=== PATIENT | female | born 1975 | race Caucasian/White ===

== ENCOUNTER 2018-07-15 13:40 | Inpatient (IN) | payer MEDICAID, OTHER ==
[~2018-07-15] VITALS: Ht 162.6 cm; Wt 70.0 kg
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
[2018-07-15] MEDS ORDERED: LORazepam 1MG TABLET PO ONE (14:30)
[2018-07-15 14:49] LABS: BASOPHILS # (AUTO) 0.05 x10^3/uL (0-0.1); BASOPHILS % (AUTO) 1 % (0-1); EOSINOPHILS # (AUTO) 0.03 x10^3/uL (0-0.4); EOSINOPHILS % (AUTO) 0 % (1-7); LYMPHOCYTES # (AUTO) 1.77 x10^3/uL (1-3.4); LYMPHOCYTES % (AUTO) 24 % (22-44); MD NO; MEAN CORPUSCULAR HEMOGLOBIN 30.3 pg (27.0-34.8); MEAN CORPUSCULAR HGB CONC 33.5 g/dL (32.4-35.8); MEAN CORPUSCULAR VOLUME 90.6 fL (80-100); MEAN PLATELET VOLUME 10.5 fL (7.4-10.4); MONOCYTES # (AUTO) 0.48 x10^3/uL (0.2-0.8); MONOCYTES % (AUTO) 7 % (2-9); NEUTROPHILS # (AUTO) 5.05 x10^3/uL (1.8-6.8); NEUTROPHILS % (AUTO) 69 % (42-75); PLATELET COUNT 234 x10^3/uL (130-400); RED BLOOD COUNT 4.65 x10^6/uL (3.82-5.3); RED CELL DISTRIBUTION WIDTH 16.1 % (9.6-15.2)
[2018-07-15 14:51] LABS: CHLORIDE 106 mmol/L (98-107)
[2018-07-15] MEDS ORDERED: LORazepam 1MG TABLET ONE (14:59)
[2018-07-15 15:00] LABS: ALANINE AMINOTRANSFERASE 32 U/L (12-78); ALBUMIN 3.4 g/dL (3.4-5.0); ALKALINE PHOSPHATASE 76 U/L (45-117); ANION GAP 10 mmol/L (5-15); BILIRUBIN,TOTAL 0.6 mg/dL (0.2-1.0); CALCIUM 8.6 mg/dL (8.5-10.1); CREATININE 0.85 mg/dL (0.55-1.02); TOTAL PROTEIN 8.3 g/dL (6.4-8.2)
[2018-07-15 15:01] LABS: SALICYLATE LEVEL < 1.7 mg/dL (2.8-20.0)
[2018-07-15 15:03] LABS: ACETAMINOPHEN < 2 mcg/mL (10-30)
--- NOTE | 2018-07-15 15:45 | NUR ---
ROOM SECURED WITH PSYCH PRECAUTIONS 1:1 SITTER AT BEDSIDE PATIENT RESTING COMFORTABLY ON GURNERY WITH SIDE RAILS UP PROVIDED WITH ADDITIONAL BLANKET/WATER
[2018-07-15 16:14] LABS: MICROSCOPIC INDICATED
[2018-07-15 16:23] LABS: CULTURE INDICATED? NO
[2018-07-15 16:26] LABS: AMPHETAMINE SCREEN, URINE Positive (Negative); BARBITURATE SCREEN, URINE Negative (Negative); BENZODIAZEPINE SCREEN, URINE Negative (Negative); CANNABINOID SCREEN, URINE Negative (Negative); COCAINE SCREEN, URINE Negative (Negative); METHADONE SCREEN, URINE Negative (Negative); OPIATE SCREEN, URINE Negative (Negative)
--- NOTE | 2018-07-15 16:29 | NUR ---
TASK RN: FIRST CONTACT WITH PT. BANKING MANAGEMENT CONSULTING MANAGER at bedside preforming breathalyzer with pt. Pt deneis n/v/d, sob, cp, tremors, auditory hallucinations, visual halucinations, or tactile disturbances. Pt states, "I was nauseas earlier but the pill he gave me helped." NADN. Pt resting on gurney with blanket provided for comfort measures. SI precautions in place. Sitter near doorway in direct line of sight for observation. No needs expressed at this time. Pt has unlabored respiratiosn with even chest rise and fall. Pt is AOX4. Pt's skin is pink, warm, and dry.
--- NOTE | 2018-07-15 17:23 | NUR ---
ROOM SECURED WITH PSYCH PRECAUTIONS 1:1 SITTER AT BEDSIDE PATIENT RESTING COMFORTABLY ON GURNERY WITH SIDE RAILS UP HOSPITALIST AT BEDSIDE
[2018-07-15] MEDS ORDERED: LORazepam 2 MG/ML, 1ML IM PRN ×2 (17:30)
[2018-07-15] MEDS ORDERED: THIAMINE 100 MG/ML, 2ML IM ONE (17:30)
[2018-07-15] MEDS ORDERED: ONDANSETRON ODT 4 MG PO PRN (17:30)
[2018-07-15 18:15] LABS: AMPHETAMINE SCREEN, URINE Positive (Negative); BARBITURATE SCREEN, URINE Negative (Negative); BENZODIAZEPINE SCREEN, URINE Negative (Negative); CANNABINOID SCREEN, URINE Negative (Negative); COCAINE SCREEN, URINE Negative (Negative); METHADONE SCREEN, URINE Negative (Negative); OPIATE SCREEN, URINE Negative (Negative)
[2018-07-15] MEDS ORDERED: THIAMINE 100 MG/ML, 2ML ONE (19:11)
[2018-07-15 19:26] VITALS: BP 125/83
[2018-07-15] MEDS: CHLORDIAZEPOXIDE 10 MG CAPSULE PO SCH (20:16)
[2018-07-16] MEDS: THIAMINE 100MG TABLET PO SCH (07:20)
[2018-07-16] MEDS: FOLIC ACID 1 MG TABLET PO SCH (07:20)
[2018-07-16] MEDS: CHLORDIAZEPOXIDE 10 MG CAPSULE PO SCH ×2 (07:20→11:32)
[2018-07-16] MEDS: MULTIVITAMIN 1 TABLET PO SCH (07:21)
[2018-07-16 07:47] VITALS: BP 120/85
[2018-07-16 20:01] VITALS: BP 107/66
[2018-07-16 20:47] VITALS: BP 112/76
[2018-07-16] MEDS: LORazepam 1MG TABLET PO PRN (21:04)
[2018-07-17] MEDS: LORazepam 1MG TABLET PO PRN ×3 (02:35→20:42)
[2018-07-17 07:09] VITALS: BP 115/76
[2018-07-17] MEDS: MULTIVITAMIN 1 TABLET PO SCH (07:46)
[2018-07-17] MEDS: THIAMINE 100MG TABLET PO SCH (07:46)
[2018-07-17] MEDS: FOLIC ACID 1 MG TABLET PO SCH (07:46)
[2018-07-17 20:32] VITALS: BP 118/82
[2018-07-18 07:17] VITALS: BP 122/82
[2018-07-18] MEDS: THIAMINE 100MG TABLET PO SCH (07:32)
[2018-07-18] MEDS: FOLIC ACID 1 MG TABLET PO SCH (07:32)
[2018-07-18] MEDS: LORazepam 1MG TABLET PO PRN ×2 (07:32→19:21)
[2018-07-18] MEDS: MULTIVITAMIN 1 TABLET PO SCH (07:32)
[2018-07-18 19:28] VITALS: BP 124/89
[2018-07-19 07:15] VITALS: BP 128/83
[2018-07-19] MEDS: THIAMINE 100MG TABLET PO SCH (08:30)
[2018-07-19] MEDS: FOLIC ACID 1 MG TABLET PO SCH (08:30)
[2018-07-19] MEDS: MULTIVITAMIN 1 TABLET PO SCH (08:31)
[2018-07-19] MEDS ORDERED: THIA100T67 PO (10:54)
[2018-07-19] MEDS ORDERED: FOLI-17 PO (10:54)
[2018-07-19] MEDS ORDERED: LORA-445 PO (10:54)
[2018-07-19 20:00] VITALS: BP 110/77
[2018-07-20 07:29] VITALS: BP 110/73
[2018-07-20] MEDS: FOLIC ACID 1 MG TABLET PO SCH (08:04)
[2018-07-20] MEDS: THIAMINE 100MG TABLET PO SCH (08:04)
[2018-07-20] MEDS: MULTIVITAMIN 1 TABLET PO SCH (08:04)
[2018-07-20] MEDS: LORazepam 1MG TABLET PO PRN (09:59)
[2018-07-20 19:46] VITALS: BP 100/66
[2018-07-21 07:39] VITALS: BP 117/80
[2018-07-21] MEDS: THIAMINE 100MG TABLET PO SCH (08:14)
[2018-07-21] MEDS: FOLIC ACID 1 MG TABLET PO SCH (08:14)
[2018-07-21] MEDS: MULTIVITAMIN 1 TABLET PO SCH (08:14)
[2018-07-21 20:19] VITALS: BP 117/81
[2018-07-21] MEDS: LORazepam 1MG TABLET PO PRN (20:19)
[2018-07-22 07:10] VITALS: BP 120/83
[2018-07-22] MEDS: MULTIVITAMIN 1 TABLET PO SCH (07:56)
[2018-07-22] MEDS: FOLIC ACID 1 MG TABLET PO SCH (07:56)
[2018-07-22] MEDS: THIAMINE 100MG TABLET PO SCH (07:56)
== END 2018-07-22 11:30 | disposition home or self-care (01) | DRG 881 ==
LOC: ED 14:40 → EDIP 17:19 → 2N 19:36
PROVIDERS: ADMIT Internal Medicine; ATTEND Internal Medicine
DX: F32.9 Major depressive disorder, single episode, unspecified (principal); R45.851 Suicidal ideations; F10.20 Alcohol dependence, uncomplicated; Z91.5 Personal history of self-harm; F15.10 Other stimulant abuse, uncomplicated; Z98.51 Tubal ligation status
CPT/HCPCS: 36415; 80053; 80307; 80329; 81001; 84443; 84703; 85025; 96372; G0378; J3411; G0480